=== PATIENT | female | born 1990 | race American Indian/Alaskan Native ===

== ENCOUNTER 2017-01-12 01:25 | Emergency (ER) | payer SELFPAY ==
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
[2017-01-12 04:05] VITALS: BP 128/76; PULSE 85; RESP 16; TEMP 98.6; O2SAT 98
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
== END 2017-01-12 04:16 | disposition home or self-care (01) ==
LOC: C.ER 01:25 → MERGE 01:25 → C.ER 04:16
DX: S16.1XXA Strain of muscle, fascia and tendon at neck level, initial encounter (principal); V89.2XXA Person injured in unspecified motor-vehicle accident, traffic, initial encounter